=== PATIENT | female | born 1990 | race Caucasian/White ===

== ENCOUNTER 2023-04-29 16:26 | Emergency (ER) | payer MEDICAID ==
[2023-04-29] VITALS (7 sets, daily range): BP systolic 104–128; BP diastolic 64–83
[~2023-04-29] VITALS: Ht 160 cm; Wt 53.0 kg
[2023-04-29] MEDS ORDERED: NAPROXEN500 MG PO (18:55)
[2023-04-29] MEDS ORDERED: METHOCARBAMOL500 MG PO (18:55)
== END 2023-04-29 19:20 | disposition home or self-care (01) ==
LOC: ED 16:26
DX: S09.90XA Unspecified injury of head, initial encounter (principal); X58.XXXA Exposure to other specified factors, initial encounter